=== PATIENT | female | born 2000 | race Two or more races ===

== ENCOUNTER 2020-10-12 21:55 | Emergency (ER) | payer BC ==
[~2020-10-12] VITALS: Ht 162.6 cm; Wt 98.0 kg
[2020-10-12 22:40] LABS: CLARITY URINE CLOUDY (CLEAR); COLOR URINE YELLOW (YELLOW); KETONES URINE 3+ (NEGATIVE); LEUKOCYTE ESTERASE URINE TRACE (NEGATIVE); NITRITE URINE NEGATIVE (NEGATIVE); OCCULT BLOOD URINE NEGATIVE (NEGATIVE); PH URINE 6.5 (4.5-8.0); PROTEIN URINE TRACE (NEGATIVE); SPECIFIC GRAVITY URINE 1.029 (1.005-1.030); UROBILINOGEN URINE 0.2 E.U./dL (0.2-1.0)
[2020-10-12] MEDS ORDERED: ONDANSETRON 4MG ODT PO ONE (23:30)
[2020-10-13 00:21] LABS: BASOPHILS % 0.3 % (0.0-2.0); EOSINOPHILS % 0.1 % (0.0-5.0); HEMATOCRIT. 35.6 % (36.0-48.0); HEMOGLOBIN. 12.1 g/dL (12.0-16.0); LYMPHOCYTES % 17.3 % (20.0-50.0); MEAN CORPUSCULAR HEMOGLOBIN 29.2 pg (28.0-32.0); MEAN CORPUSCULAR VOLUME 85.9 fL (81.0-99.0); MEAN PLATELET VOLUME 8.5 fl (7.4-10.4); MONOCYTES % 5.5 % (2.0-8.0); NEUTROPHILS % 76.8 % (40.0-76.0); PLATELET 308 x1000/uL (130-400); RED BLOOD CELL COUNT 4.14 mill/uL (4.2-5.4); RED CELL DISTRIBUTION WIDTH 13.4 % (11.6-14.6)
[2020-10-13 00:28] LABS: CHLORIDE 109 mEq/L (98-107)
[2020-10-13 00:30] VITALS: BP 136/88
[2020-10-13 00:52] LABS: B-HCG QUANTITATIVE 17017 mIU/mL (<3)
[2020-10-13] MEDS ORDERED: NITR-87 MT (01:22)
[2020-10-13] MEDS ORDERED: ONDA4TAB11 PO (01:22)
== END 2020-10-13 02:28 | disposition home or self-care (01) ==
LOC: ER 21:55
DX: O21.0 Mild hyperemesis gravidarum (principal); O23.41 Unspecified infection of urinary tract in pregnancy, first trimester; Z3A.01 Less than 8 weeks gestation of pregnancy
CPT/HCPCS: 36415; 76801; 76817; 80053; 81003; 81025; 84702; 85025; 99284; Q0162